=== PATIENT | female | born 2000 | race Asian ===

== ENCOUNTER 2024-09-12 08:11 | Outpatient (REF) | payer SELFPAY ==
--- NOTE | ~2024-09-12 | US_ITS ---
EXAMINATION: US PELVIS CLINICAL INFORMATION: Dysuria, lower abdominal pain, IUD. COMPARISON: None available. TECHNIQUE: Ultrasound of the pelvis is performed using both transabdominal and transvaginal transducers along with Doppler. Transvaginal imaging is performed due to inadequate visualization transabdominally. FINDINGS: Uterus: The uterus is anteverted, anteflexed and measures 6.1 x 2.5 x 4.1 cm. Normal-appearing cervix. The double wall endometrial thickness is 2 mm. IUD is in place and properly positioned. The uterus is smooth in contour and has normal myometrial echogenicity. No visible fibroid. Adnexa: Both ovaries are visualized. There is normal color flow to the ovaries. There is no ovarian torsion. There is no pelvic ascites or fluid collection. There are no adnexal masses. Right ovary measures 3.7 x 2.0 x 3.3 cm. Volume = 12.8 mL. Normal sonographic appearance. Left ovary measures 3.2 x 2.2 x 2.5 cm. Volume = 8.8 mL. Normal sonographic appearance. US/US pelvic and transvaginal IMPRESSION: 1. Normal pelvic ultrasound. 2. Endometrium measures 2 mm thickness with appropriately positioned IUD. Electronically signed by: Dao Carter MD 09/12/2024 03:45 PM [facility]
== END 2024-09-12 08:12 | disposition home or self-care (01) ==
LOC: HO.UMASIMG 08:11
PROVIDERS: Visit Provider Registered Nurse
DX: R30.0 Dysuria (principal); R10.9 Unspecified abdominal pain
CPT/HCPCS: 76830; 76856

== ENCOUNTER → 2024-09-12 15:00 | Outpatient (BNV) | payer SELFPAY | PROVIDERS: Visit Provider Radiology Diagnostic Radiology | DX: R30.0 Dysuria (principal) | CPT/HCPCS: 76830; 76856 ==